=== PATIENT | male | born 1950 | race Caucasian/White ===

== ENCOUNTER → 2017-02-05 | Outpatient (CLI) | payer MEDICARE, OTHER ==
--- NOTE | 2017-02-05 12:40 | RADIOLOGY REPORT (SQ) ---
EXAM DESCRIPTION: MRI RT LOWER JOINT WITHOUT COMPLETED DATE/TIME: 02/05/2017 10:53 am REASON FOR STUDY: R KNEE PAIN M25.561 PAIN IN RIGHT KNEE COMPARISON: None. TECHNIQUE: Rightknee images acquired and stored on PACS. Multiplanar images include fat sensitive s equences as T1, water sensitive sequences as FST2 or STIR, cartilage sensitive sequences as FSPD, and gradient echo sequences. LIMITATIONS: None. FINDINGS: JOINT AND BURSAE: No effusion. No Gregorio's cyst BONE CORTEX AND MARROW: No alteration of signal to suggest marrow replacement. No worrisome bone lesi ons. No occult fracture. ACL: High signal on T1 weighted images with an intact anterior band on the sagittal T2 and gradient e cho images. No jojo tear. PCL: Intact. MCL: Intact. No periligamentous edema or fluid. LCL: Intact. No periligamentous edema or fluid. MEDIAL MENISCUS: There is a horizontal tear in the midbody and posterior horn medial meniscus, best s hown on coronal images 15-18, and sagittal images 19-22. No parameniscal cyst. LATERAL MENISCUS: Diffuse tear throughout the anterior horn and midbody lateral meniscus, without par ameniscal cyst. This is best shown on coronal images 12-17, and sagittal images 5-9. MEDIAL COMPARTMENT: Mild chondromalacia. Mild medial femoral condyle bony spurring. No bone bruises or reactive marrow edema. LATERAL COMPARTMENT: Cartilage preserved. No bone bruises or reactive marrow edema. No osteophytes. PATELLA: No chondromalacia. No subchondral cysts. Medial and lateral retinacula intact. EXTENSOR MECHANISM: Intact. Quadriceps and patella tendons normal. SOFT TISSUES: Adjacent muscles and subcutaneous tissues normal. Normal flow void in popliteal artery and vein. OTHER: No other significant finding. IMPRESSION: Medial and lateral meniscus tears Suspect prior ACL strain TECHNICAL DOCUMENTATION: JOB ID: [id number] [employer]- All Rights Reserved
== END ==
LOC: RAD 09:51
PROVIDERS: ATTEND Physician Assistant
DX: M25.561 Pain in right knee (principal); S83.281A Other tear of lateral meniscus, current injury, right knee, initial encounter

== ENCOUNTER → 2019-10-03 | Outpatient (CLI) | payer MEDICARE, OTHER ==
--- NOTE | 2019-10-03 15:57 | RADIOLOGY REPORT (SQ) ---
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 TECHNIQUE: Sagittal and Axial imaging includes T1, T2, STIR and gradient echo sequences. Coronal T2/ HASTE imaging. LIMITATIONS: None. FINDINGS: VISUALIZED UPPER ABDOMEN: Limited evaluation. No acute or suspicious findings suggested. SEGMENTATION: No transitional anatomy. The lowest well-developed disc space is labeled L5-S1. ALIGNMENT: Mild retrolisthesis of L2 on L3. VERTEBRAE: Intact. BONE MARROW: Normal. No marrow replacement or reactive changes. DISC SIGNAL: All the disc spaces are narrowed. There is decreased T2 signal intensity. POSTERIOR ELEMENTS: Generally intact. No pars defect evident. HARDWARE: None in the spine. CORD AND CONUS: Normal in size and signal intensity. Conus at the L1-2 level. SOFT TISSUES: No aortic aneurysm seen. No bulky retroperitoneal adenopathy or mass. No paraspinal mas s or fluid. T11-12: No significant spinal stenosis or exit foraminal stenosis. T12-L1: No significant spinal stenosis or exit foraminal stenosis. L1-L2: Broad-based disc bulge with mild facet and ligament hypertrophy. Mild central canal stenosis. Mild foraminal stenoses. L2-L3: Broad-based disc bulge slightly asymmetric to the left. Left foraminal stenosis. Mild facet and ligament hypertrophy. Mild central canal stenosis. L3-L4: Facet and ligament hypertrophy. Moderate central canal stenosis. L4-L5: Broad-based disc bulge. Facet and ligament hypertrophy. Mild central canal stenosis. L5-S1: Shallow broad-based disc bulge. Facet and ligament hypertrophy. Mild central canal stenosis. LOWER THORACIC: Incompletely imaged. No stenosis seen. SACRUM: Visualized upper sacrum intact. OTHER: No other significant findings. IMPRESSION: Multilevel disc bulges. Multilevel facet arthropathy. Multilevel central canal and for aminal stenoses as described. TECHNICAL DOCUMENTATION: JOB ID: [id number] 2010 [employer]- All Rights Reserved Reading location - IP/workstation name: [email or web address]
== END ==
LOC: RAD 14:39
PROVIDERS: ATTEND Physician Assistant
DX: M51.86 Other intervertebral disc disorders, lumbar region (principal)
CPT/HCPCS: 72148